=== PATIENT | female | born 1945 | race Caucasian/White ===

== ENCOUNTER 2016-08-09 12:09 | Inpatient (IN) | payer MEDICARE ==
[~2016-08-09] VITALS: Ht 172.7 cm; Wt 72.0 kg
[~2016-08-09 12:09] MED LIST: ALPRAZOLAM0.25 MG PO; ALPRAZOLAM0.5 MG PO; AMBIEN5 MG PO; BAYER ASA325 MG OR; CHILD ASA81 MG PO; CIPRO XR500 M1 PO; CIPROFLOXACN500 MG PO; CYMBALTA60 MG PO; DICYCLOMINE10 MG PO; DOCUSATE CAL240 MG PO; FENOFIBRATE145 MG PO; FLOVENT DISK100 MCG IN; HYDROCO/APAP1 TA9 PO; HYOSCYAMINE0.125 MG PO; ISOSORB DIN30 MG OR; ISOSORB DIN30 MG PO; LASIX 20 MG TAB20 MG PO; LEVOTHYROXIN25 MCG PO; LEVOTHYROXIN50 MCG PO; LINZESS290 MCG PO; LORTAB5 PO; LOSARTAN POT50 MG PO; MELOXICAM15 MG PO; METHYLPRED4 MG PO; MIRTAZAPINE15 MG PO; NEXIUM40 M1 PO; NITROSTAT0.4 MG SL; ONDANSETRON HCL4 MG PO; ONDANSETRON4 MG OR; PANTOPRAZOLE SO40 MG PO; PERCOCET 5/325M1 TAB PO; PHENERGAN25 MG/TAB PO; PLAVIX75 MG PO; PRILOSEC20 MG/CAP OR; PROMETHAZINE25 MG OR; PROMETHAZINE25 MG PO; RANITIDINE150 MG PO; REGLAN10 MG PO; SERTRALINE50 MG PO; SIMVASTATIN40 MG PO; SIMVASTATIN80 MG PO; TOPROL XL50 MG OR; TRAMADOL HCL50 MG OR; ULTRAM50 M1 PO; XANAX0.25 MG PO; XANAX0.5 MG PO; ZANTAC150 M1 PO; ZESTRIL10 M1 OR; ZESTRIL10 MG PO; ZOFRAN4 MG OR; ZOFRAN8 MG OR; ZOLOFT100 MG PO; ZOLPIDEM10 M1 PO
[2016-08-17] VITALS (10 sets, daily range): BP systolic 127–164; BP diastolic 53–94
[2016-08-17 11:04] LABS: HEMATOCRIT 37.2 % (37.0-47.0); HEMOGLOBIN 12.2 g/dl (12.0-16.0); IMMATURE GRANULOCYTES 0.3 % (0.0-1.0); MEAN CELL VOLUME 100.8 fL CALC (80.0-100.0); MEAN CORPUSCULAR HGB 33.1 pG CALC (26.0-32.0); MEAN CORPUSCULAR HGB CONC 32.8 g/L CALC (32.0-36.0); NEUT# 3.42 thou/uL (2.00-7.15); RED BLOOD COUNT 3.69 mill/uL (4.20-5.60); RED CELL DISTRI WIDTH 13.3 % (11.5-15.5)
[2016-08-17 11:24] LABS: ANION GAP 10 (6-22 (CALC)); BUN 12 mg/dL (8-23); BUN/CREATININE RATIO 12 (12-20 (CALC)); CALCIUM 9.6 mg/dL (8.4-10.2); CARBON DIOXIDE 28 mmol/l (22-30); CHLORIDE 107 mmol/l (95-108); GFR 55 ML/MIN (>=60 (CALC)); GFR FOR AFR.AMER. > 60 ML/MIN (>=60 (CALC)); GLUCOSE 94 mg/dL (82-115); POTASSIUM 4.9 mmol/l (3.5-5.1); SODIUM 140 mmol/l (137-146)
[2016-08-18] VITALS: BP 158/83
[2016-08-18 04:00] VITALS: BP 141/73
[2016-08-18 07:58] VITALS: BP 162/71
[2016-08-18 16:18] VITALS: BP 136/68
[2016-08-18 19:12] VITALS: BP 145/70
[2016-08-19 04:07] VITALS: BP 137/60
[2016-08-19 05:26] LABS: HEMATOCRIT 29.4 % (37.0-47.0); HEMOGLOBIN 9.5 g/dl (12.0-16.0)
[2016-08-19 09:27] VITALS: BP 128/71
[2016-08-19 16:55] VITALS: BP 112/66
[2016-08-19 19:15] VITALS: BP 122/56
[2016-08-20 04:00] VITALS: BP 152/70
[2016-08-20 05:12] LABS: HEMATOCRIT 26.6 % (37.0-47.0); HEMOGLOBIN 8.6 g/dl (12.0-16.0); IMMATURE GRANULOCYTES 0.6 % (0.0-1.0); MEAN CELL VOLUME 101.1 fL CALC (80.0-100.0); MEAN CORPUSCULAR HGB 32.7 pG CALC (26.0-32.0); MEAN CORPUSCULAR HGB CONC 32.3 g/L CALC (32.0-36.0); NEUT# 9.54 thou/uL (2.00-7.15); RED BLOOD COUNT 2.63 mill/uL (4.20-5.60); RED CELL DISTRI WIDTH 13.7 % (11.5-15.5)
[2016-08-20 05:28] LABS: ANION GAP 9 (6-22 (CALC)); BUN 13 mg/dL (8-23); BUN/CREATININE RATIO 14 (12-20 (CALC)); CALCIUM 8.5 mg/dL (8.4-10.2); CARBON DIOXIDE 26 mmol/l (22-30); CHLORIDE 103 mmol/l (95-108); CREATININE 0.9 mg/dL (0.5-1.0); GFR > 60 ML/MIN (>=60 (CALC)); GFR FOR AFR.AMER. > 60 ML/MIN (>=60 (CALC)); GLUCOSE 145 mg/dL (82-115); POTASSIUM 3.6 mmol/l (3.5-5.1); SODIUM 134 mmol/l (137-146)
[2016-08-20 10:12] VITALS: BP 134/55
[2016-08-20] MEDS ORDERED: XARELTO10 MG PO (11:00)
[2016-08-20] MEDS ORDERED: PERCOCET 10/31 COMBO PO (11:01)
== END 2016-08-20 12:09 | DRG 470 ==
LOC: ENPENDDIS → MS2 08-17 09:37
PROVIDERS: Internal Medicine; ADMIT Orthopaedic Surgery; ATTEND Orthopaedic Surgery
PROC: 0SRC0J9 Replacement of Right Knee Joint with Synthetic Substitute, Cemented, Open Approach (ICD-10-PCS; principal; 2016-08-17)
DX: M17.11 Unilateral primary osteoarthritis, right knee (principal); M32.9 Systemic lupus erythematosus, unspecified; I10 Essential (primary) hypertension; I25.10 Atherosclerotic heart disease of native coronary artery without angina pectoris; F17.210 Nicotine dependence, cigarettes, uncomplicated; K21.9 Gastro-esophageal reflux disease without esophagitis; R50.82 Postprocedural fever; E03.9 Hypothyroidism, unspecified; F41.9 Anxiety disorder, unspecified; F32.9 Major depressive disorder, single episode, unspecified; I25.2 Old myocardial infarction; Z95.5 Presence of coronary angioplasty implant and graft; Z95.1 Presence of aortocoronary bypass graft
CPT/HCPCS: J1650; J2270; J2710

== ENCOUNTER 2016-09-09 20:03 | Inpatient (IN) | payer MEDICARE ==
[~2016-09-09] VITALS: Ht 172.7 cm; Wt 70.9 kg
[~2016-09-09 20:03] MED LIST changes: +PERCOCET 10/31 COMBO PO; +XARELTO10 MG PO
[2016-09-09] MEDS ORDERED: PERCOCET 5/325M1 TAB PO (20:50)
[2016-09-09] MEDS ORDERED: REGLAN10 MG PO (20:51)
[2016-09-09] MEDS ORDERED: HYCOSAMINE PO (20:52)
[2016-09-09 21:14] LABS: HEMATOCRIT 35.2 % (37.0-47.0); HEMOGLOBIN 11.3 g/dl (12.0-16.0); IMMATURE GRANULOCYTES 0.3 % (0.0-1.0); MEAN CELL VOLUME 99.7 fL CALC (80.0-100.0); MEAN CORPUSCULAR HGB CONC 32.1 g/L CALC (32.0-36.0); NEUT# 3.79 thou/uL (2.00-7.15); RED BLOOD COUNT 3.53 mill/uL (4.20-5.60); RED CELL DISTRI WIDTH 14.1 % (11.5-15.5)
[2016-09-09 21:20] LABS: URINE BILIRUBIN - DIPSTICK NEGATIVE (NEGATIVE); URINE BLOOD DIPSTICK NEGATIVE (NEGATIVE); URINE COLOR YELLOW; URINE GLUCOSE - DIPSTICK NEGATIVE (NEGATIVE); URINE KETONE NEGATIVE (NEGATIVE); URINE NITRITE - DIPSTICK NEGATIVE (Negative); URINE PROTEIN - DIPSTICK NEGATIVE (NEG-TRACE); URINE SPECIFIC GRAVITY 1.025; URINE UROBILINOGEN - DIPSTICK 0.2 E.U./dL (0.2)
[2016-09-09 21:23] LABS: URINE CLARITY TURBID; URINE LEUK ESTERASE SMALL (NEGATIVE)
[2016-09-09 21:33] LABS: URINE CALCIUM OXALATE CRYSTALS FEW lpf; URINE SQUAMOUS EPITHELIAL CELL FEW EPI/hpf (0-FEW)
[2016-09-09 21:34] LABS: ALBUMIN 3.9 g/dL (3.2-5.0); ALKALINE PHOSPHATASE 106 u/l (38-126); AMYLASE 120 u/l (30-110); ANION GAP 15 (6-22 (CALC)); BILIRUBIN, TOTAL 0.5 mg/dL (0.0-1.4); BUN 13 mg/dL (8-23); BUN/CREATININE RATIO 15 (12-20 (CALC)); CALCIUM 9.9 mg/dL (8.4-10.2); CARBON DIOXIDE 22 mmol/l (22-30); CHLORIDE 108 mmol/l (95-108); CREATININE 0.9 mg/dL (0.5-1.0); GFR > 60 ML/MIN (>=60 (CALC)); GFR FOR AFR.AMER. > 60 ML/MIN (>=60 (CALC)); GLUCOSE 100 mg/dL (82-115); LIPASE 1172 u/l (23-300); POTASSIUM 3.7 mmol/l (3.5-5.1); SGOT/AST 12 u/l (9-36); SGPT/ALT 19 u/l (11-66); SODIUM 141 mmol/l (137-146); TOTAL PROTEIN 6.8 g/dL (6.3-8.2)
[2016-09-09 21:46] LABS: MYOGLOBIN 145 ng/mL (0 - 62)
[2016-09-09 23:21] LABS: BARBITURATES NEGATIVE (NEGATIVE); COCAINE NEGATIVE (NEGATIVE); METHADONE NEGATIVE (NEGATIVE); OXCYCODONE POSITIVE (NEGATIVE); TETRAHYDROCANNABIONOL NEGATIVE (NEGATIVE); TRICYLIC ANTIDEPRESSANTS NEGATIVE (NEGATIVE)
[2016-09-10 00:27] VITALS: BP 163/67
[2016-09-10 04:49] VITALS: BP 138/70
[2016-09-10 06:27] LABS: ALBUMIN 2.8 g/dL (3.2-5.0); ALKALINE PHOSPHATASE 75 u/l (38-126); ANION GAP 9 (6-22 (CALC)); BILIRUBIN, TOTAL 0.3 mg/dL (0.0-1.4); BUN 12 mg/dL (8-23); BUN/CREATININE RATIO 14 (12-20 (CALC)); CALCIUM 8.9 mg/dL (8.4-10.2); CARBON DIOXIDE 26 mmol/l (22-30); CHLORIDE 108 mmol/l (95-108); CREATININE 0.9 mg/dL (0.5-1.0); GFR > 60 ML/MIN (>=60 (CALC)); GFR FOR AFR.AMER. > 60 ML/MIN (>=60 (CALC)); GLUCOSE 84 mg/dL (82-115); MAGNESIUM 1.6 mg/dL (1.6-2.3); POTASSIUM 4.1 mmol/l (3.5-5.1); SGOT/AST 9 u/l (9-36); SGPT/ALT 18 u/l (11-66); SODIUM 139 mmol/l (137-146); TOTAL PROTEIN 4.9 g/dL (6.3-8.2)
[2016-09-10 07:34] VITALS: BP 128/67
[2016-09-10 15:30] VITALS: BP 145/57
[2016-09-10 20:10] VITALS: BP 146/62
[2016-09-11 05:25] VITALS: BP 132/61
[2016-09-11 06:22] LABS: HEMATOCRIT 30.8 % (37.0-47.0); HEMOGLOBIN 9.8 g/dl (12.0-16.0); IMMATURE GRANULOCYTES 0.3 % (0.0-1.0); MEAN CELL VOLUME 101.3 fL CALC (80.0-100.0); MEAN CORPUSCULAR HGB 32.2 pG CALC (26.0-32.0); MEAN CORPUSCULAR HGB CONC 31.8 g/L CALC (32.0-36.0); NEUT# 4.15 thou/uL (2.00-7.15); RED BLOOD COUNT 3.04 mill/uL (4.20-5.60); RED CELL DISTRI WIDTH 13.6 % (11.5-15.5)
[2016-09-11 06:35] LABS: ANION GAP 11 (6-22 (CALC)); BUN 9 mg/dL (8-23); BUN/CREATININE RATIO 10 (12-20 (CALC)); CARBON DIOXIDE 25 mmol/l (22-30); CHLORIDE 107 mmol/l (95-108); CREATININE 0.9 mg/dL (0.5-1.0); GFR > 60 ML/MIN (>=60 (CALC)); GFR FOR AFR.AMER. > 60 ML/MIN (>=60 (CALC)); GLUCOSE 99 mg/dL (82-115); LIPASE 403 u/l (23-300); POTASSIUM 4.7 mmol/l (3.5-5.1); SODIUM 138 mmol/l (137-146)
[2016-09-11 06:37] LABS: CALCIUM 9.3 mg/dL (8.4-10.2)
[2016-09-11 08:00] VITALS: BP 130/52
[2016-09-11 08:32] VITALS: BP 130/52
[2016-09-11] MEDS ORDERED: HYDROCO/APAP1 TA9 PO (13:52)
[2016-09-11 16:15] VITALS: BP 131/62
[2016-09-11 20:15] VITALS: BP 146/72
[2016-09-12 04:20] VITALS: BP 155/72
[2016-09-12 05:23] LABS: HEMATOCRIT 27.7 % (37.0-47.0); HEMOGLOBIN 8.7 g/dl (12.0-16.0); IMMATURE GRANULOCYTES 0.9 % (0.0-1.0); MEAN CORPUSCULAR HGB 32.3 pG CALC (26.0-32.0); MEAN CORPUSCULAR HGB CONC 31.4 g/L CALC (32.0-36.0); NEUT# 4.39 thou/uL (2.00-7.15); RED BLOOD COUNT 2.69 mill/uL (4.20-5.60); RED CELL DISTRI WIDTH 13.9 % (11.5-15.5)
[2016-09-12 05:24] LABS: ANION GAP 10 (6-22 (CALC)); BUN 9 mg/dL (8-23); BUN/CREATININE RATIO 10 (12-20 (CALC)); CALCIUM 8.9 mg/dL (8.4-10.2); CARBON DIOXIDE 26 mmol/l (22-30); CHLORIDE 106 mmol/l (95-108); CREATININE 0.9 mg/dL (0.5-1.0); GFR > 60 ML/MIN (>=60 (CALC)); GFR FOR AFR.AMER. > 60 ML/MIN (>=60 (CALC)); GLUCOSE 90 mg/dL (82-115); LIPASE 558 u/l (23-300); POTASSIUM 3.9 mmol/l (3.5-5.1); SODIUM 139 mmol/l (137-146)
[2016-09-12 07:59] VITALS: BP 130/68
[2016-09-12 08:03] LABS: HEMATOCRIT 27.8 % (37.0-47.0); HEMOGLOBIN 8.7 g/dl (12.0-16.0); MEAN CELL VOLUME 102.6 fL CALC (80.0-100.0); MEAN CORPUSCULAR HGB 32.1 pG CALC (26.0-32.0); MEAN CORPUSCULAR HGB CONC 31.3 g/L CALC (32.0-36.0); RED BLOOD COUNT 2.71 mill/uL (4.20-5.60)
[2016-09-12 08:16] LABS: PROTHROMBIN TIME 11.3 SECONDS (9.0-12.5)
[2016-09-12 08:31] VITALS: BP 130/68
== END 2016-09-12 15:16 | DRG 440 ==
LOC: ENPENDDIS → ED 20:03 → ED-I 23:04 → ED 23:15 → MS2 23:16
PROVIDERS: Emergency Medicine; Internal Medicine; Surgery; ADMIT Internal Medicine; ATTEND Internal Medicine
DX: K85.90 Acute pancreatitis without necrosis or infection, unspecified (principal); M32.9 Systemic lupus erythematosus, unspecified; K27.9 Peptic ulcer, site unspecified, unspecified as acute or chronic, without hemorrhage or perforation; I25.10 Atherosclerotic heart disease of native coronary artery without angina pectoris; E03.9 Hypothyroidism, unspecified; F32.9 Major depressive disorder, single episode, unspecified; K58.9 Irritable bowel syndrome, unspecified; G89.29 Other chronic pain; I10 Essential (primary) hypertension; F41.9 Anxiety disorder, unspecified; F17.210 Nicotine dependence, cigarettes, uncomplicated; K21.9 Gastro-esophageal reflux disease without esophagitis; Z79.82 Long term (current) use of aspirin; Z79.02 Long term (current) use of antithrombotics/antiplatelets; Z95.5 Presence of coronary angioplasty implant and graft; Z95.1 Presence of aortocoronary bypass graft
CPT/HCPCS: Q9967; S0164

== ENCOUNTER 2016-12-11 13:01 | Inpatient (IN) | payer MEDICARE ==
[~2016-12-11] VITALS: Ht 172.7 cm; Wt 64.4 kg
[~2016-12-11 13:01] MED LIST changes: +BENADRYL 50MG C50 MG PO; +COMPAZINE5 MG/TAB PO; +CREON1 CAP; +HYCOSAMINE PO; +MEDDOSEPAK PO
[2016-12-11] MEDS ORDERED: COMPAZINE10 MG PO (13:05)
[2016-12-11] MEDS ORDERED: DICYCLOMINE HCL20 MG PO (13:14)
[2016-12-11] MEDS ORDERED: AMITRIPTYLIN50 MG PO (13:19)
[2016-12-11] MEDS ORDERED: LINZESS290 MCG PO (13:21)
[2016-12-11] MEDS ORDERED: CLOPIDOGREL75 MG PO (13:25)
[2016-12-11] MEDS ORDERED: PHENERGAN25 MG/TAB PO (13:57)
[2016-12-11] MEDS ORDERED: OXYCODO-APAP1 TA2 PO (13:58)
[2016-12-11] MEDS ORDERED: ADULT ASPIRIN E81 MG PO (13:59)
[2016-12-11] MEDS ORDERED: XANAX0.25 MG PO (14:00)
[2016-12-11] MEDS ORDERED: ZOLOFT100 MG PO (14:01)
[2016-12-14] VITALS (9 sets, daily range): BP systolic 112–170; BP diastolic 68–89
[2016-12-14 09:42] LABS: HEMATOCRIT 36.1 % (37.0-47.0); HEMOGLOBIN 12.1 g/dl (12.0-16.0); IMMATURE GRANULOCYTES 0.5 % (0.0-1.0); MEAN CORPUSCULAR HGB 32.5 pG CALC (26.0-32.0); MEAN CORPUSCULAR HGB CONC 33.5 g/L CALC (32.0-36.0); NEUT# 2.94 thou/uL (2.00-7.15); RED BLOOD COUNT 3.72 mill/uL (4.20-5.60); RED CELL DISTRI WIDTH 15.7 % (11.5-15.5)
[2016-12-14 09:58] LABS: ALBUMIN 3.7 g/dL (3.2-5.0); ALKALINE PHOSPHATASE 81 u/l (38-126); ANION GAP 13 (6-22 (CALC)); BILIRUBIN, TOTAL 0.4 mg/dL (0.0-1.4); BUN 8 mg/dL (8-23); BUN/CREATININE RATIO 10 (12-20 (CALC)); CALCIUM 9.3 mg/dL (8.4-10.2); CARBON DIOXIDE 25 mmol/l (22-30); CHLORIDE 108 mmol/l (95-108); CREATININE 0.7 mg/dL (0.5-1.0); GFR > 60 ML/MIN (>=60 (CALC)); GFR FOR AFR.AMER. > 60 ML/MIN (>=60 (CALC)); GLUCOSE 94 mg/dL (82-115); POTASSIUM 4.1 mmol/l (3.5-5.1); SGOT/AST 10 u/l (9-36); SGPT/ALT 17 u/l (11-66); SODIUM 142 mmol/l (137-146)
[2016-12-14 10:11] LABS: ACT PARTIAL THROMBO TIME 25.2 SECONDS (20.0-32.5); PROTHROMBIN TIME 10.6 SECONDS (9.0-12.5)
--- NOTE | 2016-12-14 14:45 | NUR ---
PT TO ROOM VIA BED ACCOMPANIED BY STAFF; PT A/O X3; PT /O PAIN 10/10 TO LEFT LEG AND NAUSEA, WILL MEDICATE ORDERED; O2 2L VIA NC; DRSG TO LEFT KNEE CDI, ICE PACK IN PLACE; SCD TO RLE IN PLACE; PT ORIENTED TO ROOM AND CALL SYSTEM; WILL CONTINUE TO MONITOR.
--- NOTE | 2016-12-14 15:52 | NUR ---
FAMILY IN TO VISIT PT
--- NOTE | 2016-12-14 16:50 | NUR ---
REPORT RECEIVED FROM KRYSTYNA, PT LETHARGIC BUT RESPONDS TO VERBAL STIMULI, IVF INFUSING, DRESSING TO L. KNEE CDI. FAMILY AT BEDSIDE, CALL PEREZ IN REACH.
--- NOTE | 2016-12-14 17:00 | NUR ---
PATTI DAVIDSON REQUESTED NURSE TO ASSESS PT, ON ARRIVAL PT WAS FOUND TO HAVE RESP 4-5 PER/MIN, WOULD NOT RESPOOND TO VERBAL OR TACTILE SITMULI, STERNAL RUB DID NOT AROUSE PT, CLINICAL MARKETING MANAGER CALLED AND WAS ON SPOT WITHIN 60 SECS. PUPILS WERE FIXED. PT STILL DID NOT RESPOND TO THEIR STERNAL RUB. O2 SATS IN 30'S, RADIAL PULSES PALPABLE @ 76/MIN, VS MEASURED AND RECORDED. CLINICAL MARKETING MANAGER ADMINISTERED NARCAN X 2 DOSES WHICH WAS EFFECTIVE IN AROUSING PT WHO C/O CHEST PAIN SOON SHE WAS AWAKENED. HOSPITAL TELEVISION RENTAL CLERK ON SITE WITH CLINICAL MARKETING MANAGER, RESP DELIVERED O2 VIA AMBU BAG. PT WAS ORIENTED AND AWARE OF SURROUNDINGS. WAS TRANSFERRED TO ICU FOR CLOSER MONITORING.
--- NOTE | 2016-12-14 17:15 | NUR ---
PATIENT TRANSFERRED TO ICU BED 7 FROM MED/SURG. PATIENT PUT ON MONITOR. VITAL SIGNS STABLE. PATIENT ORIENTED TO ROOM. FAMILY AT BEDSIDE. RESP EVEN AND UNLABORED AT THIS TIME. NO SIGNS AND SYMPTOMS OF DISTRESS. PATIENT COMPLAINS OF PAIN. NO MEDS GIVEN AT THIS TIME, DUE TO PATIENT BEING UNRESPONSIVE AND GIVEN NARCAN TO WAKE PATIENT IMMEDIATELY BEFORE TRANSFER.
--- NOTE | 2016-12-14 17:25 | NUR ---
ATTEMPTING P.T. EVAL AND RX, BUT PATIENT NOT MEDICALLY STABLE AND BEING TRANSFERRED TO ICU FOR OBSERVATION. WILL F/U TOMORROW.
--- NOTE | 2016-12-14 17:30 | NUR ---
TRANSPORTED TO ICU, BEDSIDE REPORT GIVEN TO EZEQUIEL.
--- NOTE | 2016-12-14 18:45 | NUR ---
REPORT FROM CATY CARRANZA. ASSUMED PT. CARE.
--- NOTE | 2016-12-14 19:05 | NUR ---
PT. REMOVED FROM BEDPAN AT THIS TIME. PT. ASSISTED TO BEDSIDE CHAIR. 1 PERSON MAJOR ASSIST REQUIRED TO TRANSFER TO CHAIR THIS IS THE FIRST TIME PT. HAS GOTTEN UP. LINENS CHANGED PT. IV HAD LEAKED PRIOR TO THIS RN TAKING OVER PATIENTS CARE. GOWN CHANGED. PT. IS AWAKE, ALERT, ORIENTED X 3. SKIN WARM, DRY, PALE. GOOD DISTIL CAP REFILL BILATERALLY. PEDAL PULSES PRESENT BILAT. RESPS EVEN AND UNLABORED. HR SINUS 70'S. BP 160 SYSTOLIC AT THIS TIME. MAE. PAT. PT. C/O 9/10 PAIN AT THIS TIME. UPDATED ON PLAN OF CARE AND NEED FOR CLOSE PAIN MONITORING AND CAUTIONARY NARCOTIC DOSING.
--- NOTE | 2016-12-14 21:35 | NUR ---
PT. ASSISTED TO BEDSIDE COMMODE. 1 PERSON ASSIST. ABLE TO TURN WITH JUST ONE PERSON MODERATE ASSIST. TOLERATED WELL. REPOSITIONED FOR COMFORT. WILL CONTINUE TO REASSESS.
--- NOTE | 2016-12-14 22:59 | NUR ---
PT. REPORTS SIGNIFICANT IMPROVEMENT IN PAIN LEVEL AT THIS TIME. REMAINS AWAKE, ALERT, ORIENTED X 3 WATCHING TELEVISION. PROVIDED WITH CRACKERS AND WATER PER HER REQUEST. RESPS REMAIN EVEN AND UNLABORED.
[2016-12-15] VITALS (7 sets, daily range): BP systolic 106–140; BP diastolic 55–67
--- NOTE | 2016-12-15 00:35 | NUR ---
PT. RESTING IN BED WITH EYES CLOSED. REMAINS AROUSABLE TO LIGHT VERBAL STIMULI. DENIES COMPLANITS OR NEEDS AT THIS TIME. REPOSITIONS SELF FOR COMFORT. RESPS REMAINS EVEN AND UNLABORED. SKIN WARM AND DRY.
--- NOTE | 2016-12-15 02:15 | NUR ---
PT. RESTING ON RT. SIDE AT THIS TIME. STATES THE PERCOCET HAS HELPED HER PAIN QUITE A BIT AND HER PAIN IS NOW ONLY LOCALIZED TO RIGHT AT THE AREA OF THE KNEE CAP. PT. REMAINS AROUSABLE TO LIGHT VERBAL STIMULI. RESPS EVEN AND ULABORED. VSS. REMAINS SINUS ON THE MONITOR. WILL CONTINUE TO ASSESS.
--- NOTE | 2016-12-15 04:03 | NUR ---
PT. REMAINS ROUSABLE TO LIGHT VERBAL STIMULI. PT. REPORTS 9/10 PAIN TO LT. KNEE. MEDICATED PER PHYSICIAN ORDERS. RESPS REMAINS UNLABORED. CALL LIGHT REMAINS WITHIN REACH.
--- NOTE | 2016-12-15 06:08 | NUR ---
PT. REPORTS 8/10 PAIN AT THIS TIME TO LT. KNEE. REMAINS ROUSABLE TO LIGHT VERBAL STIMULI. DENIES OTHER COMPLAINTS AT THIS TIME. IV FLUIDS CONTINUE TO INFUSE AT 100 CC/HR. RESPS REMAINS EVEN AND UNLABORED. SKIN WARM AND DRY. REMAINS AFEBRILE.
[2016-12-15 06:55] LABS: HEMATOCRIT 30.4 % (37.0-47.0); HEMOGLOBIN 9.9 g/dl (12.0-16.0)
--- NOTE | 2016-12-15 07:20 | NUR ---
PT ALERT AND ORIENTED, RESTING IN BED, LEFT KNEE WITH DRESSING CD&I, PPPB, GOOD MOBILITY AND CAP REFILL NOTED TO LEFT FOOT, PT STATES SHE HAD THE RIGHT ONE DONE RECENTLY WELL, AM ASSESSMENT COMPLETED, SEE INTERVENTIONS, TELE READING SB-SR RATE IN THE 55-65 RANGE, B/P STABLE RESPS EVEN AND UNLABOTED WTIH NO SOB OR DISTRESS NOTED, O2 OFF AT THIS TIME, TOLERATED WELL WITH SATS MAINTAINED DURING THIS NURSES TIME AT BEDSIDE, DIET CHANGED TO CARDIAC FROM CLEAR WILL MONITOR TOLERANCE, ICE PACKS REMAIN IN PLACE ON LEFT KNEE FOR COMFORT, CALL PEREZ WITHIN REACH, ENCOURAGED TO CALL FOR ANY NEEDED ASSISTANCE
--- NOTE | 2016-12-15 07:45 | NUR ---
SET UP ASSIST PROVIDED EARLIER FOR AM MEAL (ADVANCED DIET MEAL) AND PT TOLERATED WELL, COMPLAINS OF MILD NAUSEA, WILL MEDICATE ORDERED, CALL PEREZ REMAINS WITHIN REACH
--- NOTE | 2016-12-15 08:23 | NUR ---
AT BEDSIDE, DISCUSSING PLAN OF CARE
--- NOTE | 2016-12-15 08:52 | NUR ---
P.T. AT BEDSIDE WORKING WITH PATIENT
--- NOTE | 2016-12-15 09:57 | NUR ---
PT RESTING INBED, OFFERS NO NEW COMAPLINTS, PLAN FOR P.T. TO RE TREAT AT 1300 WITH POTENTIAL D/C AFTER, WILL MONITOR CLOSELY
--- NOTE | 2016-12-15 10:17 | NUR ---
OOB TO BSC WITH SBA TOLERATED WELL, VOIDED 400 mL CLEAR MABER URINE, BACK TO BED WITH SAME ASSIST, CALL PEREZ WITHIN REACH
--- NOTE | 2016-12-15 11:02 | NUR ---
VISITORS AT BEDSIDE, OFFERS NO NEW COMPLAINTS, CALL PEREZ WITHIN REACH
--- NOTE | 2016-12-15 11:09 | NUR ---
MEDICATED FOR COMPLAINTS OF PAIN, CALL PEREZ WITHIN REACH
[2016-12-15] MEDS ORDERED: ASPIRIN EC325 MG PO (11:12)
--- NOTE | 2016-12-15 12:51 | NUR ---
P.T. AT BEDSIDE FOR THERAPY, PT MEDICATE FOR PAIN PRIOR TO START OF TREATMENT. FAMILY REMAINS AT BEDSIDE
--- NOTE | 2016-12-15 14:33 | NUR ---
Spoke with patient regarding HH selection, states she was extremely happy with HH she had recently with first knee replacement and wishes to use same agency (agency was [facility]) home health selection notice completed and signed, pt provided with copy and Brigette from [facility] notified and will take care of setting up visits starting tomorrow, pt aware. Danie from [employer] notified as well
--- NOTE | 2016-12-15 14:52 | NUR ---
Patient was seen and treated today. Patient expressed readiness for physical therapy. Physical Therapy Management: 1. Ankle pumps x 15 repetitions 2. Bilateral quad-setting x 5 seconds hold x 15 repetitions 3. Bilateral hamstring setting x 5 seconds hold x 15 repetitions 4. Passive stretching of the left knee into full extension x 5 minutes 5. Active-assistive range of motion of the left knee 5.1 Hip and knee flexion x 15 repetitions 6. Active range of motion of the left knee 6.1 Hip and knee flexiob x 15 repetitions 7. Supine to sit and sit to supine x 2 repetitions with minimal asssist and verbal cues for safety. 8. Sitting balance/tolerance at the edge of the bed x 3-5 minutes with contact guard assist for safety. 9. Sit to stand and stand to sit with minimal assist for safety x 4 repetitions 10. Bed to chair and chair to bed transfer with minimal asist and verbal cues for safety x 4 repetitions. 11. Gait training with rolling walker and minimal assist and verbal cues for safety. Patient was able to perform all exercises with minimal fatigue. Fall precautions reviewed. Patient verbalized understanding.
--- NOTE | 2016-12-15 15:00 | NUR ---
Discharge instructions given. Patient verbalizes understanding of same. Discharged in stable condition via Wheelchair to Home with family. All belongings sent with pt. SCRIPT FOR PERCOCET SENT WITH PATIENT
== END 2016-12-15 15:00 | DRG 470 ==
LOC: MS2 12-14 08:34 → ICU 12-14 17:18
PROVIDERS: Family Medicine; ADMIT Orthopaedic Surgery; ATTEND Orthopaedic Surgery
PROC: 0SRD0J9 Replacement of Left Knee Joint with Synthetic Substitute, Cemented, Open Approach (ICD-10-PCS; principal; 2016-12-14)
DX: M17.12 Unilateral primary osteoarthritis, left knee (principal); I38 Endocarditis, valve unspecified; M32.9 Systemic lupus erythematosus, unspecified; K86.1 Other chronic pancreatitis; I10 Essential (primary) hypertension; E78.5 Hyperlipidemia, unspecified; K58.9 Irritable bowel syndrome, unspecified; I25.119 Atherosclerotic heart disease of native coronary artery with unspecified angina pectoris; E03.9 Hypothyroidism, unspecified; F41.9 Anxiety disorder, unspecified; G89.4 Chronic pain syndrome; F17.210 Nicotine dependence, cigarettes, uncomplicated; I73.9 Peripheral vascular disease, unspecified; R40.4 Transient alteration of awareness; R06.89 Other abnormalities of breathing; T40.2X5A Adverse effect of other opioids, initial encounter; Y92.239 Unspecified place in hospital as the place of occurrence of the external cause; I25.2 Old myocardial infarction; Z96.651 Presence of right artificial knee joint; Z79.02 Long term (current) use of antithrombotics/antiplatelets; Z01.818 Encounter for other preprocedural examination; I49.9 Cardiac arrhythmia, unspecified; K21.9 Gastro-esophageal reflux disease without esophagitis; E78.00 Pure hypercholesterolemia, unspecified; F32.89 Other specified depressive episodes; Z95.818 Presence of other cardiac implants and grafts; Z97.2 Presence of dental prosthetic device (complete) (partial)
CPT/HCPCS: J1100; J2795

== ENCOUNTER 2016-12-30 11:57 | Emergency (ER) | payer MEDICARE ==
[~2016-12-30] VITALS: Ht 172.7 cm; Wt 66.0 kg
[~2016-12-30 11:57] MED LIST changes: +ADULT ASPIRIN E81 MG PO; +AMITRIPTYLIN50 MG PO; +ASPIRIN EC325 MG PO; +CLOPIDOGREL75 MG PO; +COMPAZINE10 MG PO; +DICYCLOMINE HCL20 MG PO; +OXYCODO-APAP1 TA2 PO
[2016-12-30 13:42] LABS: HEMOGLOBIN 10.5 g/dl (12.0-16.0); IMMATURE GRANULOCYTES 0.7 % (0.0-1.0); MEAN CELL VOLUME 100.6 fL CALC (80.0-100.0); MEAN CORPUSCULAR HGB CONC 31.8 g/L CALC (32.0-36.0); NEUT# 8.09 thou/uL (2.00-7.15); RED BLOOD COUNT 3.28 mill/uL (4.20-5.60); RED CELL DISTRI WIDTH 16.5 % (11.5-15.5)
[2016-12-30 13:49] LABS: ALBUMIN 3.9 g/dL (3.2-5.0); ALKALINE PHOSPHATASE 122 u/l (38-126); ANION GAP 13 (6-22 (CALC)); BILIRUBIN, TOTAL 0.5 mg/dL (0.0-1.4); BUN 8 mg/dL (8-23); BUN/CREATININE RATIO 11 (12-20 (CALC)); CALCIUM 9.3 mg/dL (8.4-10.2); CARBON DIOXIDE 25 mmol/l (22-30); CHLORIDE 107 mmol/l (95-108); CREATININE 0.7 mg/dL (0.5-1.0); GFR > 60 ML/MIN (>=60 (CALC)); GFR FOR AFR.AMER. > 60 ML/MIN (>=60 (CALC)); GLUCOSE 122 mg/dL (82-115); POTASSIUM 4.3 mmol/l (3.5-5.1); SGOT/AST 9 u/l (9-36); SGPT/ALT 24 u/l (11-66); SODIUM 141 mmol/l (137-146); TOTAL PROTEIN 6.6 g/dL (6.3-8.2)
[2016-12-30] MEDS ORDERED: PERCOCET 5/325M1 TAB PO (15:39)
[2016-12-30] MEDS ORDERED: KEFLEX500 MG PO (15:39)
[2016-12-30 16:02] VITALS: BP 166/60
== END 2016-12-30 16:03 | disposition home or self-care (01) ==
LOC: ED 11:57
PROVIDERS: Emergency Medicine
PROC: 0S9D3ZZ Drainage of Left Knee Joint, Percutaneous Approach (ICD-10-PCS; principal; 2016-12-30)
DX: T81.89XA Other complications of procedures, not elsewhere classified, initial encounter (principal); M25.462 Effusion, left knee; K58.9 Irritable bowel syndrome, unspecified; M32.9 Systemic lupus erythematosus, unspecified; I25.2 Old myocardial infarction; E03.9 Hypothyroidism, unspecified; M19.90 Unspecified osteoarthritis, unspecified site; I10 Essential (primary) hypertension; F41.9 Anxiety disorder, unspecified; K21.9 Gastro-esophageal reflux disease without esophagitis; F32.9 Major depressive disorder, single episode, unspecified; E78.5 Hyperlipidemia, unspecified; I25.119 Atherosclerotic heart disease of native coronary artery with unspecified angina pectoris; Z95.1 Presence of aortocoronary bypass graft; Z95.5 Presence of coronary angioplasty implant and graft; F17.210 Nicotine dependence, cigarettes, uncomplicated; Y83.1 Surgical operation with implant of artificial internal device as the cause of abnormal reaction of the patient, or of later complication, without mention of misadventure at the time of the procedure; Z96.653 Presence of artificial knee joint, bilateral

== ENCOUNTER 2017-04-25 21:47 | Emergency (ER) | payer MEDICARE ==
[~2017-04-25] VITALS: Ht 172.7 cm; Wt 64.0 kg
[~2017-04-25 21:47] MED LIST changes: +KEFLEX500 MG PO
[2017-04-25] MEDS ORDERED: MIRTAZAPINE15 MG PO (22:12)
[2017-04-25] MEDS ORDERED: ZANTAC150 M1 PO (22:14)
[2017-04-25] MEDS ORDERED: METO50TA52 PO (22:15)
[2017-04-25] MEDS ORDERED: REGLAN10 MG PO (22:16)
[2017-04-25] MEDS ORDERED: COMPAZINE5 MG/TAB PO (22:18)
[2017-04-25] MEDS ORDERED: HYOSCYAMINE0.125 M3 PO (22:19)
[2017-04-25] MEDS ORDERED: PROMETHAZINE12.5 MG PO (22:23)
[2017-04-25 23:14] LABS: HEMOGLOBIN 13.5 g/dl (12.0-16.0); IMMATURE GRANULOCYTES 0.3 % (0.0-1.0); MEAN CELL VOLUME 96.2 fL CALC (80.0-100.0); MEAN CORPUSCULAR HGB 31.7 pG CALC (26.0-32.0); MEAN CORPUSCULAR HGB CONC 32.9 g/L CALC (32.0-36.0); NEUT# 3.44 thou/uL (2.00-7.15); RED BLOOD COUNT 4.26 mill/uL (4.20-5.60); RED CELL DISTRI WIDTH 17.1 % (11.5-15.5)
[2017-04-25 23:22] LABS: ALBUMIN 3.7 g/dL (3.2-5.0); ALKALINE PHOSPHATASE 133 u/l (38-126); AMYLASE 55 u/l (30-110); ANION GAP 14 (6-22 (CALC)); BILIRUBIN, TOTAL 0.4 mg/dL (0.0-1.4); BUN 11 mg/dL (8-23); BUN/CREATININE RATIO 15 (12-20 (CALC)); CALCIUM 10.2 mg/dL (8.4-10.2); CARBON DIOXIDE 22 mmol/l (22-30); CHLORIDE 109 mmol/l (95-108); CREATININE 0.7 mg/dL (0.5-1.0); GFR > 60 ML/MIN (>=60 (CALC)); GFR FOR AFR.AMER. > 60 ML/MIN (>=60 (CALC)); GLUCOSE 124 mg/dL (82-115); LIPASE 492 u/l (23-300); POTASSIUM 4.2 mmol/l (3.5-5.1); SGOT/AST 12 u/l (9-36); SGPT/ALT 17 u/l (11-66); SODIUM 140 mmol/l (137-146); TOTAL PROTEIN 6.1 g/dL (6.3-8.2)
[2017-04-25 23:34] LABS: MYOGLOBIN 29 ng/mL (0 - 62)
[2017-04-26 09:01] LABS: URINE BLOOD DIPSTICK NEGATIVE (NEGATIVE); URINE COLOR YELLOW; URINE GLUCOSE - DIPSTICK NEGATIVE (NEGATIVE); URINE KETONE TRACE mg/dL (NEGATIVE); URINE LEUK ESTERASE TRACE (NEGATIVE); URINE NITRITE - DIPSTICK NEGATIVE (Negative); URINE PROTEIN - DIPSTICK NEGATIVE (NEG-TRACE); URINE SPECIFIC GRAVITY 1.025; URINE UROBILINOGEN - DIPSTICK 0.2 E.U./dL (0.2)
[2017-04-26 09:06] LABS: URINE CLARITY CLEAR
[2017-04-26 09:08] LABS: URINE BILIRUBIN - DIPSTICK SMALL (NEGATIVE)
[2017-04-26] MEDS ORDERED: LORTAB 1010 MG PO (09:26)
[2017-04-26] MEDS ORDERED: ZOFRAN ODT4 MG PO (09:26)
[2017-04-26 09:31] VITALS: BP 121/70
== END 2017-04-26 09:48 | disposition home or self-care (01) ==
LOC: ED 21:47
PROVIDERS: Emergency Medicine
DX: R10.10 Upper abdominal pain, unspecified (principal); R42 Dizziness and giddiness; R11.10 Vomiting, unspecified; F17.210 Nicotine dependence, cigarettes, uncomplicated; I25.810 Atherosclerosis of coronary artery bypass graft(s) without angina pectoris; Z95.1 Presence of aortocoronary bypass graft; I25.2 Old myocardial infarction; R94.31 Abnormal electrocardiogram [ECG] [EKG]; K21.9 Gastro-esophageal reflux disease without esophagitis; K85.90 Acute pancreatitis without necrosis or infection, unspecified

== ENCOUNTER 2017-06-02 15:50 | Emergency (ER) | payer MEDICARE ==
[~2017-06-02] VITALS: Ht 172.7 cm; Wt 60.0 kg
[~2017-06-02 15:50] MED LIST changes: +HYOSCYAMINE0.125 M3 PO; +LORTAB 1010 MG PO; +METO50TA52 PO; +PROMETHAZINE12.5 MG PO; +ZOFRAN ODT4 MG PO
[2017-06-02 16:43] LABS: HEMATOCRIT 39.5 % (37.0-47.0); IMMATURE GRANULOCYTES 0.5 % (0.0-1.0); MEAN CORPUSCULAR HGB 32.9 pG CALC (26.0-32.0); MEAN CORPUSCULAR HGB CONC 32.9 g/L CALC (32.0-36.0); NEUT# 5.88 thou/uL (2.00-7.15); RED BLOOD COUNT 3.95 mill/uL (4.20-5.60); RED CELL DISTRI WIDTH 15.8 % (11.5-15.5)
[2017-06-02 16:57] LABS: ALBUMIN 3.5 g/dL (3.2-5.0); ALKALINE PHOSPHATASE 118 u/l (38-126); ANION GAP 14 (6-22 (CALC)); BILIRUBIN, TOTAL 0.4 mg/dL (0.0-1.4); BUN 11 mg/dL (8-23); BUN/CREATININE RATIO 16 (12-20 (CALC)); CARBON DIOXIDE 23 mmol/l (22-30); CHLORIDE 109 mmol/l (95-108); CREATININE 0.7 mg/dL (0.5-1.0); GFR > 60 ML/MIN (>=60 (CALC)); GFR FOR AFR.AMER. > 60 ML/MIN (>=60 (CALC)); LIPASE 1880 u/l (23-300); POTASSIUM 4.2 mmol/l (3.5-5.1); SGOT/AST 10 u/l (9-36); SGPT/ALT 21 u/l (11-66); SODIUM 142 mmol/l (137-146); TOTAL PROTEIN 5.9 g/dL (6.3-8.2)
[2017-06-02 17:53] VITALS: BP 171/101
[2017-06-02] MEDS ORDERED: PERCOCET 10/31 COMBO PO (18:05)
== END 2017-06-02 18:23 | disposition home or self-care (01) ==
LOC: ED 15:50
PROVIDERS: Emergency Medicine
DX: R07.81 Pleurodynia (principal); K86.1 Other chronic pancreatitis; K58.9 Irritable bowel syndrome, unspecified; F41.9 Anxiety disorder, unspecified; I25.2 Old myocardial infarction; F32.9 Major depressive disorder, single episode, unspecified; E03.9 Hypothyroidism, unspecified; M32.9 Systemic lupus erythematosus, unspecified; K21.9 Gastro-esophageal reflux disease without esophagitis; F17.210 Nicotine dependence, cigarettes, uncomplicated

== ENCOUNTER 2017-12-13 01:48 | Emergency (ER) | payer MEDICARE ==
[~2017-12-13] VITALS: Ht 172.7 cm; Wt 68.2 kg
[2017-12-13 02:30] LABS: HEMATOCRIT 43.5 % (37.0-47.0); HEMOGLOBIN 14.3 g/dl (12.0-16.0); IMMATURE GRANULOCYTES 0.2 % (0.0-5.0); MEAN CELL VOLUME 101.4 fL CALC (80.0-100.0); MEAN CORPUSCULAR HGB 33.3 pG CALC (26.0-32.0); MEAN CORPUSCULAR HGB CONC 32.9 g/L CALC (32.0-36.0); NEUT# 3.23 thou/uL (2.00-7.15); RED BLOOD COUNT 4.29 mill/uL (4.20-5.60); RED CELL DISTRI WIDTH 14.6 % (11.5-15.5)
[2017-12-13 02:43] LABS: ALKALINE PHOSPHATASE 115 u/l (38-126); AMYLASE 47 u/l (30-110); ANION GAP 17 (6-22 (CALC)); BILIRUBIN, TOTAL 0.5 mg/dL (0.0-1.4); BUN 12 mg/dL (8-23); BUN/CREATININE RATIO 15 (12-20 (CALC)); CARBON DIOXIDE 25 mmol/l (22-30); CHLORIDE 108 mmol/l (95-108); CREATININE 0.8 mg/dL (0.5-1.0); GFR > 60 ML/MIN (>=60 (CALC)); GFR FOR AFR.AMER. > 60 ML/MIN (>=60 (CALC)); LIPASE 33 u/l (23-300); POTASSIUM 3.6 mmol/l (3.5-5.1); SGOT/AST 11 u/l (9-36); SGPT/ALT 14 u/l (11-66); SODIUM 147 mmol/l (137-146); TOTAL PROTEIN 7.6 g/dL (6.3-8.2)
[2017-12-13 02:49] LABS: ALBUMIN 4.6 g/dL (3.2-5.0)
[2017-12-13 02:50] LABS: MYOGLOBIN 39 ng/mL (0 - 62)
[2017-12-13] MEDS ORDERED: TORADOL PO (06:54)
[2017-12-13 07:23] VITALS: BP 156/72
== END 2017-12-13 07:29 | disposition home or self-care (01) ==
LOC: ED 01:48
PROVIDERS: Family Medicine
DX: F41.9 Anxiety disorder, unspecified (principal); M94.0 Chondrocostal junction syndrome [Tietze]; K58.9 Irritable bowel syndrome, unspecified; F32.9 Major depressive disorder, single episode, unspecified; I25.2 Old myocardial infarction; E03.9 Hypothyroidism, unspecified; K21.9 Gastro-esophageal reflux disease without esophagitis; M32.9 Systemic lupus erythematosus, unspecified; Z95.1 Presence of aortocoronary bypass graft; F17.210 Nicotine dependence, cigarettes, uncomplicated; R07.9 Chest pain, unspecified; R06.02 Shortness of breath
CPT/HCPCS: J2060

== ENCOUNTER 2018-02-19 10:16 | Inpatient (IN) | payer MEDICARE ==
[~2018-02-19] VITALS: Ht 172.7 cm; Wt 69.0 kg
[~2018-02-19 10:16] MED LIST changes: +TORADOL PO
--- NOTE | 2018-02-19 10:16 | NUR ---
PT TO ROOM 12 VIA WC ABLE TO STAND AND TRANSFER SELF.
--- NOTE | 2018-02-19 10:52 | NUR ---
PATIENT MEDICATED WITH 4 MG OF ZOFRAN IVP FOR VOMITING, APPROX. 50 ML OF YELLOW BILE-LIKE FLUID OUT PRIOR TO GIVING MEDICATION. DILAUDID 0.5 MG SLOW IVP, FOR RUQ AND LUQ SHARP PAIN, AND PROTONIX IVP. PATIENT REPORTS HX OF PANCREATITIS AND CONSTIPATION. CALL LIGHT GIVEN INFORMED TO CALL FOR ASSISTANCE. WILL CONTINUE TO MONITOR.
[2018-02-19 11:00] LABS: IMMATURE GRANULOCYTES 0.5 % (0.0-5.0); MEAN CELL VOLUME 104.7 fL CALC (80.0-100.0); MEAN CORPUSCULAR HGB 34.9 pG CALC (26.0-32.0); MEAN CORPUSCULAR HGB CONC 33.3 g/L CALC (32.0-36.0); NEUT# 7.69 thou/uL (2.00-7.15); RED BLOOD COUNT 4.3 mill/uL (4.20-5.60); RED CELL DISTRI WIDTH 14.5 % (11.5-15.5)
[2018-02-19 11:08] LABS: ALBUMIN 3.7 g/dL (3.2-5.0); ALKALINE PHOSPHATASE 109 u/l (38-126); AMYLASE 145 u/l (30-110); ANION GAP 13 (6-22 (CALC)); BILIRUBIN, TOTAL 0.6 mg/dL (0.0-1.4); BUN 30 mg/dL (8-23); BUN/CREATININE RATIO 39 (12-20 (CALC)); CARBON DIOXIDE 24 mmol/l (22-30); CHLORIDE 107 mmol/l (95-108); CREATININE 0.8 mg/dL (0.5-1.0); GFR > 60 ML/MIN (>=60 (CALC)); GFR FOR AFR.AMER. > 60 ML/MIN (>=60 (CALC)); LIPASE 1247 u/l (23-300); POTASSIUM 3.4 mmol/l (3.5-5.1); SGOT/AST 13 u/l (9-36); SODIUM 141 mmol/l (137-146); TOTAL PROTEIN 6.1 g/dL (6.3-8.2)
--- NOTE | 2018-02-19 11:09 | NUR ---
PATIENT IRRIGATION EQUIPMENT REMOVER LIGHT REQUESTING PAIN MEDICATION FOR PAIN 02/05. INFORMED.
[2018-02-19 11:21] LABS: MYOGLOBIN 42 ng/mL (0 - 62)
--- NOTE | 2018-02-19 11:30 | NUR ---
PATIENT MEDICATED WITH 10 MG OF REGLAN IVP AND 1 MG OF DILAIDID SLOW IVP. PATIENT INFORMED TO TAKE SLOW DEEP BREATHS. STATES "OH GOD, OH GOD." AT BEDSIDE, WILL CONTINUE TO MONITOR.
--- NOTE | 2018-02-19 12:25 | NUR ---
PATIENT REPORTS PAIN 7/10, DENIES ANY NAUSEA AT THIS TIME. UPDATED IN WAIT TIME. WILL CONTINUE TO MONITOR.
--- NOTE | 2018-02-19 12:37 | NUR ---
PATIENT UNABLE TO VERIFY HOME MEDS. AT BEDSIDE.
--- NOTE | 2018-02-19 13:18 | NUR ---
[facility] AT BEDSIDE TO TRANSPORT TO [facility] FOR CT.
--- NOTE | 2018-02-19 13:23 | NUR ---
PATIENT OUT OF DEPARTMENT IN STABLE CONDITION. [facility] SENT HOME WITH PATIENT.
--- NOTE | 2018-02-19 18:45 | NUR ---
REPORT GIVEN TO BRANDON HARP. PATIENT CONTINUES OUT OF DEPARTMENT. CARE RELINQUISHED.
--- NOTE | 2018-02-19 19:28 | NUR ---
RETURNED FROM CT SCAN AT [facility].
--- NOTE | 2018-02-19 19:52 | NUR ---
PT. C/O ABD. PAIN AND NAUSEA IV MEDS GIVEN PER MD ORDER.
--- NOTE | 2018-02-19 20:05 | NUR ---
Admission Note Report Given to: MONSERRAT TAYLOR Transported by: Wheelchair X Stretcher Transported with: X Nurse Transporter X Patent IV O2 Veneer Joiner
--- NOTE | 2018-02-19 20:09 | NUR ---
PT. TAKEN TO [place] FLOOR VIA STRETCHER, NO C/O.
[2018-02-19 20:20] VITALS: BP 161/94
--- NOTE | 2018-02-19 20:20 | NUR ---
PT ARRIVED TO [facility] VIA ST[facility]ER WITH ER STAFF AND 2 FAMILY MEMBERS; ALERT AND ORIENTED WITH FACIAL GRIMACING AND GUARDING HER ABDOMEN. AMBULATED TO BED WITH MINIMAL ASSIST. C/O ABDOMINAL PAIN 12/06 AND ASKS FOR PAIN MEDICATION. RESPIRATIONS EVEN AND UNLABORED; THROAT CONGESTION AUDIBLE; PT COUGHS TO CLEAR THROAT FREQUENTLY; LUNGS ARE COURSE THROUGHOUT WITH WHEEZING TO ANTERIOR RIGHT CHEST; SMOKES CIGARETTES. OREINTED TO ROOM AND CALL LIGHT SYSTEM. WILL MEDICATE PRIOR TO ADMISSION ASSESSMENT. SAFETY MEASURES IN PLACE. CALL LIGHT WITHIN REACH.
--- NOTE | 2018-02-19 21:45 | NUR ---
DILAUDID, ZOFRAN, AND SONATA ADMINISTERED. ABDOMINAL PAIN INCREASED TO A 10/10 AND NOW AN 8/10 AFTER DILAUDID. ASSESSMENT COMPLETED. IV FLUIDS INITIATED. PLAN OF CARE DISCUSSED. PT ENCOURAGED TO VERBLIZE CONCERNS. STATES UNDERSTANDING. SAFETY MEASURES IN PLACE. CALL LIGHT WITHIN REACH.
--- NOTE | 2018-02-19 23:25 | NUR ---
PT CONTINUES WITH 8/10 ABDOMINAL PAIN; PERCOCET PO GIVEN AT THIS TIME. PT GIVEN PILLOW FOR SPLINTING AND RELAXATION ENCOURAGED.
--- NOTE | 2018-02-20 00:40 | NUR ---
PT USING CALL LIGHT FREQUENTLY TO ASK FOR PAIN MEDICATIONS. ALL MEDICATIONS HAVE BEEN ADMINISTERED PER ORDERS AND ZOFRAN GIVEN WELL; PILLOW APPLIED FOR SPLINTING AND RELAXATION TECHNIQUES CONTINUE TO BE ENCOURAGED. PT MOANING WITH FACIAL GRIMACING; WILL CONTINUE TO MONITOR. IV FLUIDS INFUSING WITHOUT DIFFICULTY; IV SITE APPEARS HEALTHY. PT STAND BY ASSIST TO BATHROOM; AMBULATORY. SAFETY MEASURES IN PLACE. CALL LIGHT WITHIN REACH.
[2018-02-20 03:52] VITALS: BP 144/82
--- NOTE | 2018-02-20 05:14 | NUR ---
PT ASLEEP AT THIS TIME WITH NO SIGNS OF DISTRESS. RESPIRATIONS EVEN AND UNLABORED ON ROOM AIR. NO ACUTE CHANGES IN CONDITION THROUGHOUT THE NIGHT. SAFETY MEASURES IN PLACE. CALL LIGHT WITHIN REACH.
[2018-02-20 05:34] LABS: HEMATOCRIT 41.7 % (37.0-47.0); HEMOGLOBIN 14.2 g/dl (12.0-16.0); IMMATURE GRANULOCYTES 1.5 % (0.0-5.0); MEAN CELL VOLUME 101.7 fL CALC (80.0-100.0); MEAN CORPUSCULAR HGB 34.6 pG CALC (26.0-32.0); MEAN CORPUSCULAR HGB CONC 34.1 g/L CALC (32.0-36.0); NEUT# 11.3 thou/uL (2.00-7.15); RED BLOOD COUNT 4.1 mill/uL (4.20-5.60); RED CELL DISTRI WIDTH 14.2 % (11.5-15.5)
[2018-02-20 05:37] LABS: AMYLASE 183 u/l (30-110); ANION GAP 11 (6-22 (CALC)); BUN 24 mg/dL (8-23); BUN/CREATININE RATIO 37 (12-20 (CALC)); CARBON DIOXIDE 24 mmol/l (22-30); CHLORIDE 110 mmol/l (95-108); CREATININE 0.6 mg/dL (0.5-1.0); GFR > 60 ML/MIN (>=60 (CALC)); GFR FOR AFR.AMER. > 60 ML/MIN (>=60 (CALC)); LIPASE 1275 u/l (23-300); POTASSIUM 3.9 mmol/l (3.5-5.1); SODIUM 141 mmol/l (137-146)
--- NOTE | 2018-02-20 07:10 | NUR ---
PT REPORT RECIEVED FROM BRANDON JOHNSON. PT SLEEPING NO S/S OF DISTRESS. CALL LIGHT IN REACH. WILL CONTINUE TO MONITOR
--- NOTE | 2018-02-20 08:53 | NUR ---
PT ASSESSMENT COMPLETE. PT A/O X3. SPECCH IS CLEAR. RESP EVEN AND UNLABORED. LUNG SOUNDS COARSE. NONPRODUCTIVE COUGH NOTED. ENOCURAGED AMBULATION. BOWEL SOUNDS ACTIVE X4. PT STATES LAST BM 02/16/18. MILK OF MAG GIVEN TO PT. PT C/O GENERALIZED ABDOMINAL TENDERNESS AND SHARP PAIN 8 OUT OF 10 ON PAIN SCALE. MEDICATED W/ ONE 10/325 PERCOCET PO. STRONG RADIAL AND PEDAL PULSES. #20 LAC NS @175. SITE APPEARS HEALTHY. PLAN OF CARE DISCUSSED. SAFETY PRECAUTIONS IN PLACE. CALL LIGHT IN REACH. WILL CONTINUE TO MONITOR
--- NOTE | 2018-02-20 09:37 | NUR ---
PT C/O FEELING NAUSEOUS. MEDICATED W/ 4 MG ZOFRAN IV. LIGHTS DIMMED FOR COMFORT. PT DENIES ANY FURTHER NEEDS. CALL LIGHT IN REACH. WILL CONTINUE TO MONITOR
--- NOTE | 2018-02-20 10:31 | NUR ---
PT C/O SHARP ABDOMINAL PAIN 9 OUT OF 10. MEDICATED W/ 1MG DILAUDID IV. REPOSITIONED IN BED. PT DENIES ANY FURTHER NEEDS. CALL LIGHT IN REACH. WILL CONTINUE TO MONITOR
--- NOTE | 2018-02-20 11:33 | NUR ---
PT STATES SHARP ABDOMINAL PAIN IS STILL A 9 OUT OF 10 AND SHE IS FEELING NAUSEOUS. MEDICATION ADMINISTRAION DISCUSSED W/ PT. PT STATES UNDERSTANDING. SUGGESTED PT RELAX AND TRY TO GET SOME REST. NOISE VOLUME DECREASED. PT DENIES ANY FURTHER NEEDS. WILL CONTINUE TO MONITOR.
[2018-02-20] MEDS ORDERED: XANAX0.25 MG PO (12:46)
[2018-02-20] MEDS ORDERED: LYRICA75 MG PO (12:46)
--- NOTE | 2018-02-20 12:46 | NUR ---
PT PROVIDED W/ IS. INSTRUCTED ON USE AND INDICATION. 2000 ML INCENTIVE VOLUME ACHIEVED. GOAL OF 2500 ML SET. PT STATES UNDERSTANDING OF INFORMATION.
[2018-02-20] MEDS ORDERED: PERCOCET 10/31 COMBO PO (12:47)
[2018-02-20] MEDS ORDERED: REMERON15 MG PO (12:47)
[2018-02-20] MEDS ORDERED: ISOSORB MONO30 MG PO (12:48)
[2018-02-20] MEDS ORDERED: LIPITOR20 M1 PO (12:48)
[2018-02-20] MEDS ORDERED: CYMBALTA60 MG PO (12:49)
[2018-02-20] MEDS ORDERED: INCRUSE EL62.5 MCG/I PO (12:49)
[2018-02-20] MEDS ORDERED: PLAVIX75 MG PO (12:51)
[2018-02-20] MEDS ORDERED: LINZESS145 MCG (12:52)
[2018-02-20] MEDS ORDERED: METO50TA52 PO (12:53)
--- NOTE | 2018-02-20 13:03 | NUR ---
PT C/O SHARP ABDOMINAL PAIN 8 OUT OF 10 ON PAIN SCALE. MEDICATED W/ ONE 10 PERCOCET PO. RELAXATION TECHNIQUES ENFORCED. PT DENIES ANY FURTHER NEEDS. FAMILY AT BEDSIDE. WILL CONTINUE TO MONITOR.
--- NOTE | 2018-02-20 14:45 | NUR ---
PT STATES SHARP ABDOMINAL PAIN 9 OUT OF 10 ON PAIN SCALE. MEDICATED W/ 1MG DILAUDID IV. MEDITATION TECHNIQUES IN PLACE. PT DENIES ANY FURTHER NEEDS. FAMILY AT BEDSIDE. WILL CONTINUE TO MONITOR
--- NOTE | 2018-02-20 15:19 | NUR ---
PT STATES ABDOMINAL PAIN HAS DECREASED TO A 8 OUT OF 10. PT REQUEST ICE CHIPS AT THIS TIME. DENYING ANY FURTHER NEEDS. FAMILY AT BEDSIDE. CALL LIGHT IN REACH. WILL CONTINUE TO MONITOR.
[2018-02-20 15:30] VITALS: BP 110/66
--- NOTE | 2018-02-20 16:46 | NUR ---
PT TRANSPORTED TO CT IN STABLE CONDITION VIA WHEELCHAIR BY PATTI PRECIADO
--- NOTE | 2018-02-20 17:43 | NUR ---
PT C/O DULL ABDOMINAL PAIN 8 OUT OF 10 ON PAIN SCALE. MEDICATED W/ ONE PERCOCET PO. PT DENIES ANY FURHTER NEEDS. REPOSITIONED FOR COMFORT. CALL LIGHT IN REACH. WILL CONTINUE TO MONITOR
--- NOTE | 2018-02-20 18:15 | NUR ---
PT STATES ABDOMINAL PAIN HAS DECREASED TO A 7 OUT OF 10. DENIES ANY FURTHER NEEDS. PT FALLS BACK TO SLEEP. WILL CONTINUE TO MONITOR
--- NOTE | 2018-02-20 19:00 | NUR ---
BEDSIDE REPORT RECEIVED FROM CATY JOAQUIN. PT SITTING UP IN BED WITH AT BEDSIDE; ALERT AND OREINTED. STATES THAT SHE FEELS MUCH BETTER THAN YESTERDAY AND "LIKE A NORMAL PERSON." C/O MILD ABDOMINAL PAIN AFTER DILAUDID GIVEN BY DAY SHIFT. RESPIRATIONS EVEN AND UNLABORED ON ROOM AIR. PLAN OF CARE REVIWED. PT ENCOURAGED TO VERABLIZE CONCERNS. STATES UNDERSTANDING. SAFETY MEASURES IN PLACE. CALL LIGHT WITHIN REACH.
[2018-02-20 19:04] VITALS: BP 101/59
--- NOTE | 2018-02-20 22:33 | NUR ---
MAGNESIUM INFUSING AT THIS TIME; PT TOLERATING WELL. SHE REQUESTED A CREAM SODA THAT HER BROUGHT; COMPLIANT WITH CLEAR LIQUID DIET AND PT INSTRUCTED TO ONLY HAVE BEVERAGE SHE TOLERATES IT. REPORTS UNCHANGED MODERATE NAUSEA WELL.
--- NOTE | 2018-02-21 00:20 | NUR ---
PT ASLEEP AT THIS TIME WITH NO SIGNS OF DISTRESS. REPSIRATIONS EVEN AND UNLABORED ON ROOM AIR. IV FLUIDS INFUSING WITHOUT DIFFICULTY; IV SITE APPEARS HEALTHY. PT IS STAND BY ASSIST IN ROOM. PAIN IS MANAGED WITH DILAUDID AND PERCOCET ALTERNATELY. SAFETY MEASURES IN PLACE. CALL LIGHT WITHIN REACH.
[2018-02-21 04:08] VITALS: BP 122/74
--- NOTE | 2018-02-21 04:25 | NUR ---
NO ACUTE CHANGES IN CONDITION THROUGHTOUT THE NIGHT. PT SLEPT WELL WITH LESS PAIN MANAGEMENT NEEDED. DIALUDID GIVEN AT THIS TIME FOR 7/10 ABDOMINAL PAIN. NO OTHER REQUESTS OR CONCERNS AT THIS TIME. SAFETY MEASURES IN PLACE. CALL LIGHT WITHIN REACH.
[2018-02-21 06:19] LABS: HEMATOCRIT 37.6 % (37.0-47.0); IMMATURE GRANULOCYTES 0.4 % (0.0-5.0); MEAN CELL VOLUME 105.3 fL CALC (80.0-100.0); MEAN CORPUSCULAR HGB 34.2 pG CALC (26.0-32.0); MEAN CORPUSCULAR HGB CONC 32.4 g/L CALC (32.0-36.0); NEUT# 8.07 thou/uL (2.00-7.15); RED BLOOD COUNT 3.57 mill/uL (4.20-5.60); RED CELL DISTRI WIDTH 14.6 % (11.5-15.5)
[2018-02-21 06:21] LABS: HEMOGLOBIN 12.2 g/dl (12.0-16.0)
[2018-02-21 06:33] LABS: ALKALINE PHOSPHATASE 85 u/l (38-126); ANION GAP 7 (6-22 (CALC)); BILIRUBIN, TOTAL 0.7 mg/dL (0.0-1.4); BUN 19 mg/dL (8-23); BUN/CREATININE RATIO 29 (12-20 (CALC)); CARBON DIOXIDE 28 mmol/l (22-30); CHLORIDE 110 mmol/l (95-108); CREATININE 0.7 mg/dL (0.5-1.0); GFR > 60 ML/MIN (>=60 (CALC)); GFR FOR AFR.AMER. > 60 ML/MIN (>=60 (CALC)); SGOT/AST 11 u/l (9-36); SODIUM 140 mmol/l (137-146)
[2018-02-21 06:37] LABS: ALBUMIN 2.5 g/dL (3.2-5.0); MAGNESIUM 2.9 mg/dL (1.6-2.3); TOTAL PROTEIN 4.6 g/dL (6.3-8.2)
[2018-02-21 07:03] LABS: AMYLASE 122 u/l (30-110); LIPASE 610 u/l (23-300)
[2018-02-21 07:04] LABS: CHOLESTEROL HDL RATIO 2.7 (<4.4 (CALC))
[2018-02-21 08:50] VITALS: BP 109/56
--- NOTE | 2018-02-21 08:50 | NUR ---
ASSESSMENT IS COMPLETED: IV SITE IS FREE FROM REDNESS OR EDEMA. HR IS REG,PULSES ARE STRONG X4, ABD IS SOFT WITH ACTIVE BS. BREATH SOUNDS ARE COARSE. CONTINUE TO OSBERVE AND MONITOR.
[2018-02-21 11:50] VITALS: BP 115/55
--- NOTE | 2018-02-21 13:00 | NUR ---
PT DID GET A SHOWER TODAY. NICKED HER LEFT KNEE, PLACED A BANDAID. FAMILY IN THE ROOM. IV SITE IS FREE FROM REDNESS OR EDEMA. CONTINUE TO OBSERVE AND MONITOR.
[2018-02-21 16:20] VITALS: BP 115/48
--- NOTE | 2018-02-21 18:47 | NUR ---
PT C/O LEFT KNEE CONTINUING TO BLEED SINCE SHE HAD THE SHOWER. SMALL PIN HOLE FROM NICKING ON HER NAIL. PLACED 2X2 WITH COBAN WRAP TO TRY AND STOP THE BLEED. CONTINUE TO OBSERVE AND MONITOR.
--- NOTE | 2018-02-21 19:55 | NUR ---
REPORT GIVEN BY JOE BYRNE. PATIENT AWAKE AND WATCHING TV WITH FAMILY AT THE BEDSIDE. RESP EVEN AND UNLABORED. NO S/S OF DISTRESS NOTED. FALL PRECAUTIONS IN PLACE, PLAN OF CARE DISCUSSED, AND PATIENT INFORMED TO CALL WITH ANY QUESTION OR CONCERNS.
[2018-02-21 20:00] VITALS: BP 124/72
--- NOTE | 2018-02-21 22:02 | NUR ---
PATIENT OFFERED MILK OF MAG AND LACTULOSE FOR CONSTIPATION. PATIENT CURRENTLY REFUSING AND STATES ONCE SHE IS HOME TAKING HER REGULAR MEDICATIONS HER BOWELS WILL BE BACK TO NORMAL.
--- NOTE | 2018-02-22 01:37 | NUR ---
PATIENT AWAKE AND WATCHING TV WITH SPOUSE AT BEDSIDE. RESP EVEN AND UNLABORED. NO S/S OF DISTRESS NOTED.
[2018-02-22 04:00] VITALS: BP 127/64
--- NOTE | 2018-02-22 04:28 | NUR ---
PATIENT RESTING WITH EYES CLOSED. RESP EVEN AND UNLABORED. SPOUSE AT BEDSIDE.
[2018-02-22 06:06] LABS: HEMATOCRIT 35.8 % (37.0-47.0); HEMOGLOBIN 11.9 g/dl (12.0-16.0); IMMATURE GRANULOCYTES 0.3 % (0.0-5.0); MEAN CELL VOLUME 103.5 fL CALC (80.0-100.0); MEAN CORPUSCULAR HGB 34.4 pG CALC (26.0-32.0); MEAN CORPUSCULAR HGB CONC 33.2 g/L CALC (32.0-36.0); NEUT# 7.81 thou/uL (2.00-7.15); RED BLOOD COUNT 3.46 mill/uL (4.20-5.60); RED CELL DISTRI WIDTH 14.6 % (11.5-15.5)
[2018-02-22 06:24] LABS: ALBUMIN 2.8 g/dL (3.2-5.0); ALKALINE PHOSPHATASE 92 u/l (38-126); AMYLASE 45 u/l (30-110); ANION GAP 8 (6-22 (CALC)); BILIRUBIN, TOTAL 0.7 mg/dL (0.0-1.4); BUN 16 mg/dL (8-23); BUN/CREATININE RATIO 30 (12-20 (CALC)); CARBON DIOXIDE 26 mmol/l (22-30); CHLORIDE 108 mmol/l (95-108); CREATININE 0.5 mg/dL (0.5-1.0); GFR > 60 ML/MIN (>=60 (CALC)); GFR FOR AFR.AMER. > 60 ML/MIN (>=60 (CALC)); LIPASE 279 u/l (23-300); MAGNESIUM 2.2 mg/dL (1.6-2.3); POTASSIUM 4.6 mmol/l (3.5-5.1); SGOT/AST 10 u/l (9-36); SODIUM 138 mmol/l (137-146)
--- NOTE | 2018-02-22 07:00 | NUR ---
BEDSIDE REPORT RECEIVED BY RICHARD. PT IS SLEEPING IN BED WITH NO S/S OF DISTRESS NOTED. CALL LIGHT IN REACH.
[2018-02-22 08:59] VITALS: BP 147/71
--- NOTE | 2018-02-22 09:07 | NUR ---
PT IS SITTING IN THE SIDE OF THE BED. MEDICATED PT WITH PERCOCET FOR PAIN ABD 8/10. ASSESSMENT DONE. LUNG SOUND COARSE. PT HAS NON-PRODUCTIVE COUGH. LR 100ML/HR INFUSING WELL. PT IS A&O X3. PT IN ROOM. PT DENIES ANY OTHER NEEDS AT THIS TIME. SAFETY PRECAUTIONS REINOFRCED AND CALL LIGHT IN REACH.
--- NOTE | 2018-02-22 11:02 | NUR ---
DR. ROJAS AND PENNIE JAIN AT BEDSIDE TO ASSESS PT.
--- NOTE | 2018-02-22 11:12 | NUR ---
PT AMBULATING IN THE HALLWAY WITH NO S/S OF DISTRESS NOTED. AT SIDE.
[2018-02-22] MEDS ORDERED: ZITHROMAX250 MG PO (11:49)
[2018-02-22] MEDS ORDERED: DUONEB IN (11:53)
[2018-02-22 12:10] VITALS: BP 128/62
--- NOTE | 2018-02-22 13:33 | NUR ---
Discharge instructions given. Patient verbalizes understanding of same. Discharged in stable condition via Wheelchair to Home with spouse. All belongings sent with pt.
== END 2018-02-22 13:34 | disposition home or self-care (01) | DRG 438 ==
LOC: ED 10:16 → ED-I 10:28 → ED 10:28 → ED-I 19:00 → ED 19:39 → MS2 19:40
PROVIDERS: Emergency Medicine; Internal Medicine Nephrology; ADMIT Internal Medicine; ATTEND Internal Medicine
DX: K85.90 Acute pancreatitis without necrosis or infection, unspecified (principal); J18.9 Pneumonia, unspecified organism; J44.0 Chronic obstructive pulmonary disease with (acute) lower respiratory infection; J44.1 Chronic obstructive pulmonary disease with (acute) exacerbation; F17.210 Nicotine dependence, cigarettes, uncomplicated; K58.1 Irritable bowel syndrome with constipation; F41.9 Anxiety disorder, unspecified; F32.9 Major depressive disorder, single episode, unspecified; E03.9 Hypothyroidism, unspecified; M32.9 Systemic lupus erythematosus, unspecified; K21.9 Gastro-esophageal reflux disease without esophagitis; I10 Essential (primary) hypertension; E78.5 Hyperlipidemia, unspecified; I25.10 Atherosclerotic heart disease of native coronary artery without angina pectoris; K86.1 Other chronic pancreatitis; G89.4 Chronic pain syndrome; I25.2 Old myocardial infarction; Z91.11 Patient's noncompliance with dietary regimen; Z95.1 Presence of aortocoronary bypass graft
CPT/HCPCS: J1650; S0164

== ENCOUNTER 2018-03-12 12:58 | Emergency (ER) | payer MEDICARE ==
[~2018-03-12] VITALS: Ht 172.7 cm; Wt 72.0 kg
[~2018-03-12 12:58] MED LIST changes: +DUONEB IN; +INCRUSE EL62.5 MCG/I PO; +ISOSORB MONO30 MG PO; +LINZESS145 MCG; +LIPITOR20 M1 PO; +LYRICA75 MG PO; +REMERON15 MG PO; +ZITHROMAX250 MG PO
[2018-03-12 14:02] VITALS: BP 145/62
== END 2018-03-12 14:12 | disposition home or self-care (01) ==
LOC: ED 12:58
DX: S06.0X1A Concussion with loss of consciousness of 30 minutes or less, initial encounter (principal); E03.9 Hypothyroidism, unspecified; K21.9 Gastro-esophageal reflux disease without esophagitis; I25.2 Old myocardial infarction; F41.9 Anxiety disorder, unspecified; F32.9 Major depressive disorder, single episode, unspecified; F17.210 Nicotine dependence, cigarettes, uncomplicated; V18.0XXA Pedal cycle driver injured in noncollision transport accident in nontraffic accident, initial encounter; Y93.55 Activity, bike riding; Y92.410 Unspecified street and highway as the place of occurrence of the external cause; Z95.1 Presence of aortocoronary bypass graft

== ENCOUNTER → 2018-07-14 | Outpatient (REF) | payer MEDICARE ==
[2018-07-14 10:50] LABS: ALKALINE PHOSPHATASE 96 u/l (38-126); ANION GAP 12 (6-22 (CALC)); BILIRUBIN, TOTAL 0.6 mg/dL (0.0-1.4); BUN 12 mg/dL (8-23); BUN/CREATININE RATIO 14 (12-20 (CALC)); CALCULATED LDLCHOLESTEROL 75 mg/dL (62-129 (CALC)); CARBON DIOXIDE 28 mmol/l (22-30); CHLORIDE 107 mmol/l (95-108); CHOLESTEROL HDL RATIO 3.8 (<4.4 (CALC)); CREATININE 0.8 mg/dL (0.5-1.0); GFR > 60 ML/MIN (>=60 (CALC)); GFR FOR AFR.AMER. > 60 ML/MIN (>=60 (CALC)); HDL CHOLESTEROL 41 mg/dL (>=40); POTASSIUM 3.9 mmol/l (3.5-5.1); SGOT/AST 11 u/l (9-36); SODIUM 142 mmol/l (137-146); TOTAL TRIGLYCERIDES 203 mg/dl (30-149); VLDL CHOLESTROL 41 mg/dl (0-48 (CALC))
[2018-07-14 10:52] LABS: TOTAL CHOLESTEROL 157 mg/dl (0-199); TOTAL PROTEIN 6.2 g/dL (6.3-8.2)
[2018-07-14 11:03] LABS: HEMOGLOBIN 13.6 g/dl (12.0-16.0); MEAN CELL VOLUME 107.4 fL CALC (80.0-100.0); MEAN CORPUSCULAR HGB 34.6 pG CALC (26.0-32.0); MEAN CORPUSCULAR HGB CONC 32.2 g/L CALC (32.0-36.0); RED BLOOD COUNT 3.93 mill/uL (4.20-5.60); RED CELL DISTRI WIDTH 13.7 % (11.5-15.5)
[2018-07-14 11:08] LABS: HEMATOCRIT 42.2 % (37.0-47.0)
== END | disposition home or self-care (01) ==
LOC: LAB 09:23
PROVIDERS: ATTEND Internal Medicine
DX: E03.9 Hypothyroidism, unspecified (principal); E78.2 Mixed hyperlipidemia; F32.89 Other specified depressive episodes; F41.9 Anxiety disorder, unspecified; I10 Essential (primary) hypertension; I25.810 Atherosclerosis of coronary artery bypass graft(s) without angina pectoris; K86.1 Other chronic pancreatitis; R41.3 Other amnesia

== ENCOUNTER 2018-11-14 12:18 | Emergency (ER) | payer MEDICARE ==
[~2018-11-14] VITALS: Ht 172.7 cm; Wt 70.0 kg
[2018-11-14] MEDS ORDERED: LORTAB 1010 MG PO (13:36)
[2018-11-14 13:48] VITALS: BP 168/68
== END 2018-11-14 13:59 | disposition home or self-care (01) ==
LOC: ED 12:18
DX: S22.41XA Multiple fractures of ribs, right side, initial encounter for closed fracture (principal); F17.200 Nicotine dependence, unspecified, uncomplicated; W17.89XA Other fall from one level to another, initial encounter; Y92.009 Unspecified place in unspecified non-institutional (private) residence as the place of occurrence of the external cause

== ENCOUNTER 2019-02-02 22:26 | Emergency (ER) | payer MEDICARE ==
[~2019-02-02] VITALS: Ht 172.7 cm; Wt 70.0 kg
[2019-02-02 23:55] LABS: HEMATOCRIT 40.6 % (37.0-47.0); HEMOGLOBIN 13.1 g/dl (12.0-16.0); IMMATURE GRANULOCYTES 0.5 % (0.0-5.0); MEAN CORPUSCULAR HGB 32.1 pG CALC (26.0-32.0); MEAN CORPUSCULAR HGB CONC 32.3 g/L CALC (32.0-36.0); NEUT# 4.9 thou/uL (2.00-7.15); RED BLOOD COUNT 4.08 mill/uL (4.20-5.60)
[2019-02-02 23:58] LABS: MEAN CELL VOLUME 99.5 fL CALC (80.0-100.0)
[2019-02-03 00:17] LABS: ALBUMIN 4.3 g/dL (3.2-5.0); ALKALINE PHOSPHATASE 110 u/l (38-126); ANION GAP 13 (6-22 (CALC)); BILIRUBIN, TOTAL 0.4 mg/dL (0.0-1.4); BUN 16 mg/dL (8-23); BUN/CREATININE RATIO 17 (12-20 (CALC)); CARBON DIOXIDE 25 mmol/l (22-30); CHLORIDE 105 mmol/l (95-108); CREATININE 0.9 mg/dL (0.5-1.0); GFR > 60 ML/MIN (>=60 (CALC)); GFR FOR AFR.AMER. > 60 ML/MIN (>=60 (CALC)); POTASSIUM 4.4 mmol/l (3.5-5.1); SGOT/AST 12 u/l (9-36); SODIUM 138 mmol/l (137-146); TOTAL PROTEIN 7.1 g/dL (6.3-8.2)
[2019-02-03 00:24] LABS: URINE BILIRUBIN - DIPSTICK NEGATIVE (NEGATIVE); URINE BLOOD DIPSTICK NEGATIVE (NEGATIVE); URINE COLOR YELLOW; URINE GLUCOSE - DIPSTICK NEGATIVE (NEGATIVE); URINE KETONE NEGATIVE (NEGATIVE); URINE LEUK ESTERASE NEGATIVE (NEGATIVE); URINE NITRITE - DIPSTICK NEGATIVE (Negative); URINE PROTEIN - DIPSTICK NEGATIVE (NEG-TRACE); URINE UROBILINOGEN - DIPSTICK 0.2 E.U./dL (0.2)
[2019-02-03 00:28] LABS: MYOGLOBIN 41 ng/mL (0 - 62)
[2019-02-03] MEDS ORDERED: LASIX 40 MG TAB40 MG PO (01:23)
[2019-02-03 01:46] VITALS: BP 169/79
== END 2019-02-03 01:46 | disposition home or self-care (01) ==
LOC: ED 22:26
PROVIDERS: Emergency Medicine
DX: I50.9 Heart failure, unspecified (principal); R00.1 Bradycardia, unspecified; J44.9 Chronic obstructive pulmonary disease, unspecified; I25.2 Old myocardial infarction; F17.200 Nicotine dependence, unspecified, uncomplicated; Z95.1 Presence of aortocoronary bypass graft; M79.605 Pain in left leg; M79.89 Other specified soft tissue disorders; R06.02 Shortness of breath

== ENCOUNTER 2019-04-23 14:21 | Emergency (ER) | payer MEDICARE ==
[~2019-04-23] VITALS: Ht 172.7 cm; Wt 70.0 kg
[~2019-04-23 14:21] MED LIST changes: +LASIX 40 MG TAB40 MG PO
[2019-04-23] MEDS ORDERED: LINZESS145 MCG PO (16:36)
[2019-04-23] MEDS ORDERED: ISOSORBIDE MONO30 MG PO (16:37)
[2019-04-23] MEDS ORDERED: METOLAZONE2.5 MG PO (16:38)
[2019-04-23] MEDS ORDERED: SERTRALINE HCL100 MG PO (16:40)
[2019-04-23] MEDS ORDERED: CLOPIDOGREL75 MG PO (16:40)
[2019-04-23] MEDS ORDERED: PREGABALIN75 MG PO (16:40)
[2019-04-23] MEDS ORDERED: PERCOCET1 TA4 PO (16:41)
[2019-04-23] MEDS ORDERED: MIRTAZAPINE15 MG PO (16:41)
[2019-04-23] MEDS ORDERED: ALPRAZOLAM0.25 MG PO (16:42)
[2019-04-23] MEDS ORDERED: ATORVASTATIN CA20 MG PO (16:43)
[2019-04-23] MEDS ORDERED: ONDANSETRON4 MG PO (16:43)
[2019-04-23 18:46] LABS: HEMATOCRIT 39.3 % (37.0-47.0); HEMOGLOBIN 12.9 g/dl (12.0-16.0); IMMATURE GRANULOCYTES 0.4 % (0.0-5.0); MEAN CORPUSCULAR HGB 31.9 pG CALC (26.0-32.0); MEAN CORPUSCULAR HGB CONC 32.8 g/L CALC (32.0-36.0); NEUT# 5.29 thou/uL (2.00-7.15); RED BLOOD COUNT 4.05 mill/uL (4.20-5.60); RED CELL DISTRI WIDTH 12.5 % (11.5-15.5)
[2019-04-23 19:10] LABS: ANION GAP 11 (6-22 (CALC)); BUN 14 mg/dL (8-23); BUN/CREATININE RATIO 17 (12-20 (CALC)); CARBON DIOXIDE 28 mmol/l (22-30); CHLORIDE 101 mmol/l (95-108); CREATININE 0.9 mg/dL (0.5-1.0); GFR > 60 ML/MIN (>=60 (CALC)); GFR FOR AFR.AMER. > 60 ML/MIN (>=60 (CALC)); POTASSIUM 4.1 mmol/l (3.5-5.1); SODIUM 137 mmol/l (137-146)
[2019-04-23 21:10] VITALS: BP 124/74
== END 2019-04-23 21:10 | disposition home or self-care (01) ==
LOC: ED 14:21
PROVIDERS: Family Medicine
DX: M79.605 Pain in left leg (principal); I82.812 Embolism and thrombosis of superficial veins of left lower extremity; E03.9 Hypothyroidism, unspecified; F17.210 Nicotine dependence, cigarettes, uncomplicated; Z95.1 Presence of aortocoronary bypass graft